=== PATIENT | female | born 1930 | race Two or more races ===

== ENCOUNTER 2019-09-11 14:00 | Outpatient (CLI) | payer MEDICARE, OTHER | END 2019-09-11 23:59 | disposition home health service (06) | LOC: WOU 14:00 | PROVIDERS: ATTEND Podiatrist Foot & Ankle Surgery | DX: E11.621 Type 2 diabetes mellitus with foot ulcer (principal); L97.522 Non-pressure chronic ulcer of other part of left foot with fat layer exposed; E11.51 Type 2 diabetes mellitus with diabetic peripheral angiopathy without gangrene; M79.675 Pain in left toe(s) | CPT/HCPCS: 82962; 87070; 87075; G0463 ==

== ENCOUNTER 2019-09-18 12:50 | Outpatient (CLI) | payer MEDICARE, OTHER | END 2019-09-18 23:59 | disposition home health service (06) | LOC: WOU 12:50 | PROVIDERS: ATTEND Podiatrist Foot & Ankle Surgery | DX: E11.621 Type 2 diabetes mellitus with foot ulcer (principal); L97.522 Non-pressure chronic ulcer of other part of left foot with fat layer exposed; E11.51 Type 2 diabetes mellitus with diabetic peripheral angiopathy without gangrene; M20.42 Other hammer toe(s) (acquired), left foot; M79.675 Pain in left toe(s) | CPT/HCPCS: G0463 ==

== ENCOUNTER 2019-09-25 12:00 | Outpatient (CLI) | payer MEDICARE, OTHER | END 2019-09-25 23:59 | disposition home health service (06) | LOC: WOU 12:00 | PROVIDERS: ATTEND Surgery Vascular Surgery | DX: E11.51 Type 2 diabetes mellitus with diabetic peripheral angiopathy without gangrene (principal); Z95.1 Presence of aortocoronary bypass graft | CPT/HCPCS: G0463 ==

== ENCOUNTER 2019-10-02 13:25 | Outpatient (CLI) | payer MEDICARE, OTHER | END 2019-10-02 23:59 | disposition home health service (06) | LOC: WOU 13:25 | PROVIDERS: ATTEND Podiatrist Foot & Ankle Surgery | DX: E11.51 Type 2 diabetes mellitus with diabetic peripheral angiopathy without gangrene (principal); B35.1 Tinea unguium; M79.675 Pain in left toe(s); M79.672 Pain in left foot; Z79.84 Long term (current) use of oral hypoglycemic drugs; Z79.01 Long term (current) use of anticoagulants | CPT/HCPCS: 11042; 11043; G0463 ==

== ENCOUNTER 2019-10-16 13:30 | Outpatient (CLI) | payer MEDICARE, OTHER | END 2019-10-16 23:59 | disposition home health service (06) | LOC: WOU 13:30 | PROVIDERS: ATTEND Podiatrist Foot & Ankle Surgery | DX: E11.621 Type 2 diabetes mellitus with foot ulcer (principal); L97.522 Non-pressure chronic ulcer of other part of left foot with fat layer exposed; E11.51 Type 2 diabetes mellitus with diabetic peripheral angiopathy without gangrene; B35.1 Tinea unguium; M79.675 Pain in left toe(s); M79.672 Pain in left foot; Z79.84 Long term (current) use of oral hypoglycemic drugs; Z79.01 Long term (current) use of anticoagulants | CPT/HCPCS: G0463 ==

== ENCOUNTER 2019-10-23 13:15 | Outpatient (CLI) | payer MEDICARE, OTHER | END 2019-10-23 23:59 | disposition home health service (06) | LOC: WOU 13:15 | PROVIDERS: ATTEND Podiatrist Foot & Ankle Surgery | DX: E11.621 Type 2 diabetes mellitus with foot ulcer (principal); L97.522 Non-pressure chronic ulcer of other part of left foot with fat layer exposed; E11.51 Type 2 diabetes mellitus with diabetic peripheral angiopathy without gangrene; Z79.84 Long term (current) use of oral hypoglycemic drugs; B35.1 Tinea unguium; M79.672 Pain in left foot; M79.675 Pain in left toe(s); Z79.01 Long term (current) use of anticoagulants | CPT/HCPCS: 11042 ==

== ENCOUNTER 2019-10-30 13:30 | Outpatient (CLI) | payer MEDICARE, OTHER | END 2019-10-30 23:59 | disposition home health service (06) | LOC: WOU 13:30 | PROVIDERS: ATTEND Podiatrist Foot & Ankle Surgery | DX: E11.621 Type 2 diabetes mellitus with foot ulcer (principal); L97.522 Non-pressure chronic ulcer of other part of left foot with fat layer exposed; E11.51 Type 2 diabetes mellitus with diabetic peripheral angiopathy without gangrene; M79.675 Pain in left toe(s); M79.672 Pain in left foot; B35.1 Tinea unguium; Z79.84 Long term (current) use of oral hypoglycemic drugs; M20.40 Other hammer toe(s) (acquired), unspecified foot; Z79.01 Long term (current) use of anticoagulants | CPT/HCPCS: 11042; 87070-TC ==

== ENCOUNTER 2019-11-04 13:45 | Inpatient (IN) | payer MEDICARE, OTHER ==
[~2019-11-04] VITALS: Ht 152.4 cm; Wt 61.2 kg
--- NOTE | 2019-11-04 14:00 | NUR ---
PT BIB FAMILY TO ER BED 11. WAS AT WOUND CENTER WHEN TOLD TO GO DIRECTLY TO ED. PT IS C/O WORSENING L FOOT PAIN AND REDNESS. NO OPEN SORE UPON INITIAL ASSESSMENT. AWAITING HUSAM GARCIA.
--- NOTE | 2019-11-04 14:23 | NUR ---
DR WATTS AT BEDSIDE FOR EVAL.
--- NOTE | 2019-11-04 14:50 | NUR ---
FIOS LINE INSTALLER AT BEDSIDE FOR BLOOD DRAW.
[2019-11-04 14:58] LABS: BASOPHILS # (AUTO) 0.1 /CMM (0.0-0.2); BASOPHILS % (AUTO) 1.1 % (0.0-2.0); EOSINOPHILS % (AUTO) 0.7 % (0.0-6.0); HEMATOCRIT 38 % (33-45); HEMOGLOBIN 12.4 g/dL (11.5-14.8); LYMPHOCYTES # (AUTO) 1.1 /CMM (0.8-4.8); LYMPHOCYTES % (AUTO) 12.3 % (20.0-44.0); MEAN CORPUSCULAR HGB CONC 32 g/dl (31.0-36.0); MEAN CORPUSCULAR VOLUME 76 fL (82-100); MONOCYTES # (AUTO) 0.5 /CMM (0.1-1.30); MONOCYTES % (AUTO) 5.3 % (2.0-12.0); NEUTROPHILS % (AUTO) 80.6 % (43.0-81.0); PLATELET COUNT (AUTO) 353 /CMM (150-450); RED BLOOD CELL COUNT(AUTO) 5.06 MIL/uL (4.0-5.2); WHITE BLOOD COUNT (AUTO) 8.7 K/uL (4.3-11.0)
[2019-11-04 15:10] LABS: CALCIUM, SERUM 9.5 mg/dL (8.5-10.1); CREATININE 0.7 mg/dL (0.6-1.3); POTASSIUM 4.4 mmol/L (3.5-5.1)
[2019-11-04] MEDS ORDERED: MECL25TA65 PO (15:23)
[2019-11-04] MEDS ORDERED: DILT60TA35 PO (15:23)
[2019-11-04] MEDS ORDERED: DIGO125T PO (15:23)
[2019-11-04] MEDS ORDERED: DABI75CA3 PO (15:23)
[2019-11-04] MEDS ORDERED: ATOR20TA PO (15:23)
[2019-11-04] MEDS ORDERED: METO25CA PO (15:23)
[2019-11-04] MEDS ORDERED: CANA100T PO (15:23)
[2019-11-04] MEDS ORDERED: LEVO25TA76 PO (15:23)
[2019-11-04] MEDS ORDERED: LINA145C PO (15:23)
[2019-11-04] MEDS ORDERED: MONT10TA22 PO (15:23)
[2019-11-04] MEDS ORDERED: METF-442 PO (15:23)
--- NOTE | 2019-11-04 16:26 | NUR ---
CALLED DPM PODIATRIC HAYLEY NAVA. LEFT MESSAGE REQUESTING CALL BACK FOR CONSULT
--- NOTE | 2019-11-04 16:30 | NUR ---
DR NAVA TALKING TO TO DR WATTS.
[2019-11-04] MEDS ORDERED: PIPERACILLIN /TAZOBACTAM 3.375 G in IV D5W 50 ML IV ONE (18:30)
--- NOTE | 2019-11-04 19:30 | NUR ---
REPORT GIVEN TO DYE TUB TENDER NURSE DESTINY FOR MAR.
--- NOTE | 2019-11-04 19:31 | NUR ---
REPORT RECEIVED FROM CHATO OLIVIER FOR MAR
--- NOTE | 2019-11-04 19:46 | NUR ---
MRI APPROVED,OUTSIDE CUTTER HAND NOTIFIED.
--- NOTE | 2019-11-04 19:48 | NUR ---
MS 208-1
--- NOTE | 2019-11-04 20:00 | NUR ---
REPORT GIVEN TO CHATO CHRISTENSEN
[2019-11-04 20:30] VITALS: BP 137/78
--- NOTE | 2019-11-04 20:30 | NUR ---
MS HOME HEALTH NURSE LICENSED PRACTICAL NOTES RECEIVED PATIENT FROM ER VIA GURNEY ACCOMPANIED BY DAUGHTER AND ER STAFF, ALERT AND ORIENTED X 3. VERBALLY RESPONSIVE [place] SPEAKING AND ABLE TO FOLLOW DIRECTIONS. BREATHING REGULAR AND UNLABORED ON ROOM AIR. RIGHT AC G20 IV LINE INTACT AND PATENT, FLUSHING WELL WITH NO BLEEDING OR S/S OF INFILTRATION NOTED. BODY ASSESSMENT DONE, SEEN WITH LEFT FOOT WOUND IN BETWEEN 4TH AND 5TH FINGER TOE. INITIAL TREATMENT PROVIDED, PHOTO TAKEN ATTACHED TO CHART. VITAL SIGNS AND BELONGINGS CHECKED BY MARYAM, TRAMAINE AND BABAR SENT HOME WITH THE DAUGHTER. RIGHT HEARING AID AND UPPER/LOWER DENTURES KEPT ON A CONTAINER ON BEDSIDE. DENIES SUICIDAL OR PAIN/DISCOMFORT AT THIS TIME. BED LOW AND LOCKED ON SEMI FOWLERS POSITION. CALL LIGHT IN REACH. WILL CONTINUE TO MONITOR.
--- NOTE | 2019-11-04 20:45 | NUR ---
MS RN NOTES PICKED-UP FOR MRI OF LEFT FOOT (VIA WHEELCHAIR)
[2019-11-04] MEDS ORDERED: ACETAMINOPHEN 325 MG TABLET PO PRN (22:00)
[2019-11-04] MEDS ORDERED: Z GUARD REMEDY 2 OZ OINT TP PRN (22:00)
[2019-11-04] MEDS ORDERED: MAGNESIUM HYDROXIDE 30 ML UDC PO PRN (22:00)
[2019-11-04] MEDS ORDERED: ONDANSETRON HCL/PF 4 MG/2 ML VIAL IVP PRN (22:00)
[2019-11-04] MEDS ORDERED: MAG HYDROX/AL HYDROX/SIMETH 30 ML UDC PO PRN (22:00)
[2019-11-04] MEDS: ZOLPIDEM TARTRATE 5 MG TABLET PO PRN (22:14)
[2019-11-04] MEDS: METOPROLOL SUCCINATE 25 MG TAB.SR.24H PO SCH (22:14)
[2019-11-04] MEDS: ATORVASTATIN 10 MG TABLET PO SCH (22:14)
[2019-11-04] MEDS ORDERED: PIPERACILLIN /TAZOBACTAM 3.375 G VIAL IV ONE (23:36)
[2019-11-04] MEDS: ZOSYN IVPB 3.375 G in IV D5W 50ml IV SCH (23:40)
[2019-11-05] MEDS ORDERED: PIPERACILLIN /TAZOBACTAM 3.375 G VIAL IV ONE (05:06)
[2019-11-05] MEDS: ZOSYN IVPB 3.375 G in IV D5W 50ml IV SCH (05:25)
[2019-11-05 06:36] LABS: BASOPHILS # (AUTO) 0.1 /CMM (0.0-0.2); BASOPHILS % (AUTO) 1.1 % (0.0-2.0); HEMATOCRIT 36 % (33-45); HEMOGLOBIN 11.5 g/dL (11.5-14.8); LYMPHOCYTES # (AUTO) 1.7 /CMM (0.8-4.8); LYMPHOCYTES % (AUTO) 22.2 % (20.0-44.0); MEAN CORPUSCULAR HGB CONC 32 g/dl (31.0-36.0); MEAN CORPUSCULAR VOLUME 75 fL (82-100); MONOCYTES # (AUTO) 0.9 /CMM (0.1-1.30); MONOCYTES % (AUTO) 11.4 % (2.0-12.0); NEUTROPHILS # (AUTO) 4.7 /CMM (1.8-8.9); NEUTROPHILS % (AUTO) 62.3 % (43.0-81.0); PLATELET COUNT (AUTO) 333 /CMM (150-450); RED BLOOD CELL COUNT(AUTO) 4.79 MIL/uL (4.0-5.2); WHITE BLOOD COUNT (AUTO) 7.5 K/uL (4.3-11.0)
[2019-11-05] MEDS: LEVOTHYROXINE SODIUM 25 MCG TABLET PO SCH (06:39)
[2019-11-05] MEDS: PANTOPRAZOLE 40 MG TABLET.DR PO SCH (06:39)
--- NOTE | 2019-11-05 06:50 | NUR ---
MS RN CLOSING NOTES PATIENT IN BED, ALERT AND ORIENTED X 3. AFEBRILE WITH NO S/S OF DISTRESS OBSERVED. RIGHT AC G20 IV LINE PATENT AND FLUSHING WELL. DENIES ANY PAIN/DISCOMFORT AT THIS TIME. BED LOW AND LOCKED ON SEMI FOWLERS POSITION. CALL LIGHT IN REACH. WILL ENDORSE TO MORNING SHIFT FOR MAR.
[2019-11-05 07:01] LABS: CALCIUM, SERUM 9.1 mg/dL (8.5-10.1); CREATININE 0.7 mg/dL (0.6-1.3); MAGNESIUM 1.6 mg/dL (1.8-2.4); PHOSPHORUS 3.2 mg/dL (2.5-4.9); POTASSIUM 3.5 mmol/L (3.5-5.1)
--- NOTE | 2019-11-05 08:00 | NUR ---
MS RN NOTES PATIENT IN BED RESTING NO SOB OR ACUTE DISTRESS NOTED. PATIENT ALERT, ORIENTED X 3. BED IN LOW LOCKED POSITION. SAFETY MEASURES IN PLACE. CALL LIGHT WITHIN REACH. WILL CONTINUE TO MONITOR.
--- NOTE | 2019-11-05 08:30 | NUR ---
WOUND CARE CONSULT: PT PRESENTS CONTINENT AND AMBULATORY WITH CANE AND ASSISTANCE. DEFER TO DPM FOR WOUND CARE TREATMENT PLAN. WILL SEE PRN.
[2019-11-05] MEDS: MONTELUKAST SODIUM (10MG) 10 MG TABLET PO SCH (09:00)
[2019-11-05] MEDS: MECLIZINE HCL 25 MG TABLET PO SCH (09:02)
[2019-11-05] MEDS: DILTIAZEM HCL 30 MG TABLET PO SCH ×2 (09:02→18:00)
[2019-11-05] MEDS: DABIGATRAN ETEXILATE MESYLATE 75 MG CAPSULE PO SCH ×2 (09:06→18:02)
[2019-11-05] MEDS ORDERED: PIPERACILLIN /TAZOBACTAM 3.375 G in IV D5W 100 ML IV SCH (10:00)
--- NOTE | 2019-11-05 12:00 | NUR ---
MS RN NOTES PATIENT WAS SEEN BY DR. SOTO CONSENT OBTAINED FOR SURGERY, DR. SOTO SPOKE TO PATIENTS DAUGHTER EDWARD, DAUGHTER ALSO AGREED FOR SURGERY. WILL CONTINUE TO MONITOR.
[2019-11-05] MEDS: MUPIROCIN OINT 2% 22 GM TUBE TP SCH ×2 (12:49→21:09)
[2019-11-05] MEDS: DIGOXIN 0.125 MG TABLET PO SCH (13:00)
[2019-11-05] MEDS: Magnesium 1GM/D5W 100ML PREMIX 100 ML IV SCH ×2 (14:37→15:49)
[2019-11-05] MEDS ORDERED: GADOTERIDOL 279.3 MG/ML VIAL IV ONE (16:51)
[2019-11-05] MEDS ORDERED: PIPERACILLIN /TAZOBACTAM 3.375 G in IV D5W 50 ML IV SCH ×3 (18:00)
--- NOTE | 2019-11-05 18:36 | NUR ---
MS RN NOTES PATIENT IN BED RESTING NO SOB OR ACUTE DISTRESS NOTED. NO ACUTE CHANGES NOTED. ALL DUE MEDICATIONS ADMINISTERED. ALL NEEDS MET. WILL ENDORSE CARE TO PM SHIFT.
--- NOTE | 2019-11-05 19:10 | NUR ---
RN OPENING NOTES Received patient asleep on bed. On RA, no SOB/respiratory distress noted at this time. Patient denies any pain at this time. Kept on bed clean, dry and comfortable. On fall and aspiration precautions. Will continue to monitor accordingly.
[2019-11-05] MEDS ORDERED: FEE PK DOSING 1 MIN EA MC ONE (19:21)
[2019-11-05 20:00] VITALS: BP 162/76
--- NOTE | 2019-11-05 20:00 | NUR ---
RN NOTES Called pharmacy for Vancomycin and Rocephin. Awaiting for medication delivery at this time.
[2019-11-05] MEDS: VANCOMYCIN 1 GM in IV D5W 250 ML IV SCH (20:57)
[2019-11-05] MEDS: HYDROCODONE/APAP 5/325MG 1 EACH TABLET PO PRN (21:05)
[2019-11-05] MEDS: ATORVASTATIN 10 MG TABLET PO SCH (21:06)
[2019-11-05] MEDS: METOPROLOL SUCCINATE 25 MG TAB.SR.24H PO SCH (21:07)
[2019-11-05] MEDS: CEFTRIAXONE 1 G in IV D5W 50 ML IV SCH (21:56)
[2019-11-05 22:00] VITALS: BP 162/76
[2019-11-05] MEDS: ZOLPIDEM TARTRATE 5 MG TABLET PO PRN (22:01)
[2019-11-06] MEDS: LEVOTHYROXINE SODIUM 25 MCG TABLET PO SCH (06:03)
[2019-11-06] MEDS: PANTOPRAZOLE 40 MG TABLET.DR PO SCH (06:46)
--- NOTE | 2019-11-06 06:53 | NUR ---
RN CLOSING NOTES Patient asleep, easily awaken. No new complaints made. All nursing needs attended. Due meds given as ordered. Kept on bed clean, dry and comfortable. On fall and aspiration precautions. Endorsed.
--- NOTE | 2019-11-06 08:00 | NUR ---
MS RN OPENING NOTES Received Patient resting in bed. A/O x 3, Senegalese speaking. VS stable with no acute distress. Breathing even and unlabored on room air with no respiratory distress. Denies pain. No signs and symptoms of pain. 20g PIV on RAC clean, intact, patent and flushing well. Safety precautions in place. Bed locked and set to lowest position with side rails x 2 up. All needs rendered at this time. Call light within reach. Will continue to monitor.
[2019-11-06 08:28] LABS: CALCIUM, SERUM 8.7 mg/dL (8.5-10.1); CARBON DIOXIDE 26 mmol/L (21-32); CHLORIDE 105 mmol/L (98-107); GLUCOSE 144 mg/dL (74-106); POTASSIUM 3.8 mmol/L (3.5-5.1); SODIUM SERUM 141 mmol/L (136-145); UREA NITROGEN, BLOOD 11 mg/dL (7-18)
[2019-11-06 08:29] LABS: CREATININE 0.7 mg/dL (0.6-1.3)
[2019-11-06] MEDS: DILTIAZEM HCL 30 MG TABLET PO SCH ×2 (08:31→16:29)
[2019-11-06] MEDS: MECLIZINE HCL 25 MG TABLET PO SCH (08:31)
[2019-11-06] MEDS: DABIGATRAN ETEXILATE MESYLATE 75 MG CAPSULE PO SCH ×2 (08:32→16:29)
[2019-11-06] MEDS: MONTELUKAST SODIUM (10MG) 10 MG TABLET PO SCH (08:32)
[2019-11-06] MEDS: MUPIROCIN OINT 2% 22 GM TUBE TP SCH ×2 (08:36→21:48)
[2019-11-06] MEDS: DIGOXIN 0.125 MG TABLET PO SCH (14:09)
[2019-11-06] MEDS: VANCOMYCIN 1 GM in IV D5W 250 ML IV SCH (19:05)
[2019-11-06] MEDS: HYDROCODONE/APAP 5/325MG 1 EACH TABLET PO PRN (19:09)
--- NOTE | 2019-11-06 19:10 | NUR ---
MS RN CLOSING NOTES Patient resting in bed. A/O x 3, [place] speaking. VS stable with no acute distress. Breathing even and unlabored on room air with no respiratory distress. Denies pain. No signs and symptoms of pain. 20g PIV on RAC clean, intact, patent and flushing well. ONE HEARING AID on RIGHT EAR in place. Safety precautions in place. Bed locked and set to lowest position with side rails x 3 up. All needs rendered at this time. Call light within reach. Will endorse plan of care to oncoming shift.
--- NOTE | 2019-11-06 19:11 | NUR ---
RN OPENING NOTES Received patient A/O x3, awake, ambulating within the room with straight cane, steady gait noted. Patient complaint of generalized pain, due meds given as ordered. On fall and aspiration precautions. Will continue to monitor accordingly.
[2019-11-06 20:00] VITALS: BP 140/77
[2019-11-06] MEDS: CEFTRIAXONE 1 G in IV D5W 50 ML IV SCH (20:28)
[2019-11-06 20:54] VITALS: BP 140/77
[2019-11-06] MEDS: ATORVASTATIN 10 MG TABLET PO SCH (21:12)
[2019-11-06] MEDS: METOPROLOL SUCCINATE 25 MG TAB.SR.24H PO SCH (21:12)
[2019-11-06] MEDS: ZOLPIDEM TARTRATE 5 MG TABLET PO PRN (22:07)
[2019-11-07 06:00] VITALS: BP 129/78
[2019-11-07] MEDS: LEVOTHYROXINE SODIUM 25 MCG TABLET PO SCH (06:20)
[2019-11-07] MEDS ORDERED: LIDOCAINE HCL/MPF 1% 30 ML VIAL IJ ONE (06:50)
[2019-11-07] MEDS ORDERED: ANESTHESIA TRAY IN PYXIS 1 EA TRAY MC ONE (06:50)
[2019-11-07] MEDS ORDERED: BUPIVACAINE MPF 0.5% W/EPI INJ 30 ML VIAL ONE (06:51)
[2019-11-07 07:04] LABS: CALCIUM, SERUM 9.1 mg/dL (8.5-10.1); CREATININE 0.6 mg/dL (0.6-1.3); POTASSIUM 3.5 mmol/L (3.5-5.1)
[2019-11-07] MEDS ORDERED: FENTANYL PF 100MCG/2ML AMPUL ONE (07:04)
[2019-11-07] MEDS ORDERED: MIDAZOLAM HCL 2 MG/2ML VIAL ONE (07:04)
[2019-11-07] MEDS ORDERED: BACITRACIN 50000 UNITS/VIAL ONE ×2 (07:09→08:08)
--- NOTE | 2019-11-07 07:11 | NUR ---
MS/RN OPENING NOTES RECEIVED REPORT FROM HOLDEN RODRIGUEZ RN. PATIENT IS OUT IN THE UNIT FOR DEBRIDEMENT.
[2019-11-07] MEDS ORDERED: BUPIVACAINE 0.5 % PF 150 MG/30 ML VIAL ONE (07:26)
[2019-11-07] MEDS: PANTOPRAZOLE 40 MG TABLET.DR PO SCH (07:30)
[2019-11-07] MEDS ORDERED: VANCOMYCIN 1 GM VIAL ONE (07:56)
[2019-11-07] MEDS ORDERED: GENTAMICIN 80 MG/2 ML VIAL ONE (08:08)
--- NOTE | 2019-11-07 09:15 | NUR ---
MS/RN NOTES PATIENT CAME BACK FROM SURGERY, RECEIVED FROM HOSSEIN RN PATIENT HAVE LEFT FOOT DEBRIDEMENT BY DR. NAVA ORDER OF FOOT ELEVATED WITH PILLOW, NO WEIGHT BEARING , RESUME MEDICATION AND DIET. VITAL SIGN TAKEN BP 132/75 PULSE 74 RR 18 SAO2 98 % TEMP 98.1. WILL CONTINUE TO MONITOR.
[2019-11-07] MEDS: DILTIAZEM HCL 30 MG TABLET PO SCH ×2 (09:19→17:42)
[2019-11-07] MEDS: MECLIZINE HCL 25 MG TABLET PO SCH (09:19)
[2019-11-07] MEDS: MONTELUKAST SODIUM (10MG) 10 MG TABLET PO SCH (09:20)
[2019-11-07] MEDS: DABIGATRAN ETEXILATE MESYLATE 75 MG CAPSULE PO SCH ×2 (09:22→17:48)
[2019-11-07] MEDS: MUPIROCIN OINT 2% 22 GM TUBE TP SCH ×2 (09:44→21:30)
[2019-11-07] MEDS ORDERED: DEXTROSE 50%-WATER 50 ML DISP.SYRIN IV PRN (11:00)
[2019-11-07] MEDS: INSULIN REGULAR, HUMAN 100 UNIT/ML 3 ML VIAL SQ PRN ×3 (12:10→21:36)
[2019-11-07] MEDS: BLOOD SUGAR DIAGNOSTIC 1 EACH STRIP IN SCH ×3 (12:12→21:35)
[2019-11-07] MEDS: DIGOXIN 0.125 MG TABLET PO SCH (12:12)
--- NOTE | 2019-11-07 12:20 | NUR ---
MS/RN NOTES CARDIZEM 30 MG PO NOT GIVEN HR 56 BPM. WILL CONTINUE TO MONITOR.
[2019-11-07 16:00] VITALS: BP 155/78
--- NOTE | 2019-11-07 19:07 | NUR ---
MS/RN CLOSING NOTES PATIENT ON BED. PATIENT IS ALERT AND ORIENTED X3. PATIENT NO S/S OF PAIN NOTED. NO RESPIRATORY DISTRESS NOTED. IV ACCESS AT RIGHT AC #20 PATENT AND INTACT. SEEN AND EXAMINED BY MD WITH ORDERS MADE AND CARRIED OUT. ALL DUE MEDICATION WAS GIVEN. PATIENT HAD A LEFT FOOT SURGERY. BED IN LOW POSITION AND LOCKED. CALL LIGHT WITHIN REACH X2. WILL ENDORSED TO DOCK GRADER FOR MAR.
--- NOTE | 2019-11-07 19:11 | NUR ---
RN NOTES: NOTIFIED LAB FOR VANCO TROUGH FOR 1899.
--- NOTE | 2019-11-07 19:15 | NUR ---
RN NOTES: PT HAS HEARING AID ON RIGHT EAR.
[2019-11-07 20:00] VITALS: BP 127/76
--- NOTE | 2019-11-07 20:02 | NUR ---
RN NOTES:PENDING VANCO TROUGH AWAITING VANCO TROUGH RESULT
--- NOTE | 2019-11-07 20:10 | NUR ---
RN NOTES: PT S/P LEFT FOOT DEBRIDEMENT DR PATEL, LEFT FOOT WOUND WITH DRESSING, C/D/I, NO ACTIVE BLEEDING NOTED, PT ABLE TO MOVE AND WIGGLE TOES, + SENSATION, LEFT LEG OFFLOADED ON PILLOWS.
[2019-11-07] MEDS: VANCOMYCIN 1 GM in IV D5W 250 ML IV SCH (20:16)
[2019-11-07 20:50] VITALS: BP 127/76
--- NOTE | 2019-11-07 21:00 | NUR ---
rn notes: unable to apply bactroban to wound/left foot wound, pt s/p let foot wound debidmeent, left foot covered with surgical dressing
[2019-11-07] MEDS: CEFTRIAXONE 1 G in IV D5W 50 ML IV SCH (21:35)
[2019-11-07] MEDS: ATORVASTATIN 10 MG TABLET PO SCH (21:35)
[2019-11-07 21:43] VITALS: BP 146/71
[2019-11-07] MEDS: METOPROLOL SUCCINATE 25 MG TAB.SR.24H PO SCH (21:44)
--- NOTE | 2019-11-08 | NUR ---
rn notes: placed on cdiff isolation, r/o jerel as pt stated she has been having diarrhea, loose stool for over a month now and has episode of 2 loose bm yesterday prior to admission. Addendum: 11/08/19 at 0544 by MARY DANGELO RN DISREGARD ABOVE DOCUMENTATION: WRONG ENTRY
[2019-11-08] MEDS: BLOOD SUGAR DIAGNOSTIC 1 EACH STRIP IN SCH ×4 (06:44→21:42)
[2019-11-08] MEDS: INSULIN REGULAR, HUMAN 100 UNIT/ML 3 ML VIAL SQ PRN ×4 (06:45→21:43)
--- NOTE | 2019-11-08 06:56 | NUR ---
end of shift report: Received report from antony bolivar at 1920 last night. pt s/p left foot wound debridement by dr valdez 11/07/2019, left foot wound dressing c/d/i, no active bleeding, left leg offloaded on pillows. a/o x3, able to make her needs known. iv access patent and flushing well, on hl. no s/s of iv infiltration noted. pt hearing aid placed on a box at bedside (pt's own container). sticker/id band attached. vs remains stable, needs attended. safety precautions for fall remains engaged, call light in reach, will endorse to day rn for continuity of care.
[2019-11-08] MEDS: LEVOTHYROXINE SODIUM 25 MCG TABLET PO SCH (07:31)
[2019-11-08] MEDS: PANTOPRAZOLE 40 MG TABLET.DR PO SCH (07:31)
--- NOTE | 2019-11-08 07:41 | NUR ---
RN NOTES Received Patient in bed resting comfortably in moderate high back rest. A/O x3. No signs of distress noted at this time. Noted with left foot wound dressing c/d/i, no active bleeding, left leg offloaded on pillows. IV access patent and flushing well, on hl. no s/s of iv infiltration noted. Safety measures in place, bed in lowest locked position with side rails up x2. call light placed within easy reach. Will continue to monitor.
[2019-11-08 07:48] LABS: CALCIUM, SERUM 8.9 mg/dL (8.5-10.1); CREATININE 0.6 mg/dL (0.6-1.3); POTASSIUM 3.6 mmol/L (3.5-5.1)
[2019-11-08 08:00] VITALS: BP 137/71
[2019-11-08] MEDS: DILTIAZEM HCL 30 MG TABLET PO SCH ×2 (08:19→16:15)
[2019-11-08] MEDS: MECLIZINE HCL 25 MG TABLET PO SCH (08:19)
[2019-11-08] MEDS: MONTELUKAST SODIUM (10MG) 10 MG TABLET PO SCH (08:19)
[2019-11-08] MEDS: DABIGATRAN ETEXILATE MESYLATE 75 MG CAPSULE PO SCH ×2 (08:20→16:15)
[2019-11-08] MEDS: MUPIROCIN OINT 2% 22 GM TUBE TP SCH ×2 (09:01→21:30)
[2019-11-08] MEDS: DIGOXIN 0.125 MG TABLET PO SCH (12:29)
[2019-11-08] MEDS: VANCOMYCIN 1 GM in IV D5W 250 ML IV SCH (13:50)
[2019-11-08 16:00] VITALS: BP 149/73
--- NOTE | 2019-11-08 18:35 | NUR ---
RN NOTES Patient in bed resting comfortably in moderate high back rest. A/O x3. No signs of distress noted throughout the shift. Wound care on left foot done by MD. IV access patent and flushing well, on hl. no s/s of iv infiltration noted. Safety measures in place, bed in lowest locked position with side rails up x2. call light placed within easy reach. Will Endorse to night shift manager nurse for rebeka.
[2019-11-08 20:00] VITALS: BP 114/68
--- NOTE | 2019-11-08 20:00 | NUR ---
RN NOTES: POSTED PRECAUTIONS FOR LEFT ARM P[T HAS LEFT MASTECTOMY: NO BP /IV/BLOOD DRAW ON LEFT ARM.
--- NOTE | 2019-11-08 20:30 | NUR ---
rn notes: sit outside pt's room, as pt kept trying to get out of bed, wants to go home. no siytter available, senior auditor still making rounds doing vs. safety precautions for fall engaged/. pt risk for fall
--- NOTE | 2019-11-08 20:42 | NUR ---
RN NOTES: CONTACTED PT'S DAUGHTER HILARIA, PT KEPT TRYING TO GET OUT OF BED, PT'S DIAPER WAS THEN CHANGED, AND NEW P[ADS APPLIED, BUT PT STILL WANTING TO GET UP AND LEAVE, SITTING SHE WILL GO HOME, PT SPEAKS LITTLE CENTRAL AFRICAN, [place], SPOKED WITH HILARIA, SHE THEN SPEAK WITH HER MOTHER AND EXPLAIN SHE WILL BE GOING BACK HOME TOMORROW AFTERNOON. PER HILARIA TO GIVE HER MOTHER TYLENOL FOR LEFT FOOT PAIN, NO NORCO, AND TO GIVE SLEEPING PILL.
[2019-11-08] MEDS: CEFTRIAXONE 1 G in IV D5W 50 ML IV SCH (20:46)
--- NOTE | 2019-11-08 20:46 | NUR ---
PRN TYLENOL: PT C/O LEFT FOOT PAIN, PER DAUGHTER ONLY GIVE TYLENOL, NO NORCO, PRN TYLENOL 650 MG TAB PO ADMINISTERED TO PT AT THIS TIME.
[2019-11-08 21:36] VITALS: BP 109/62
[2019-11-08] MEDS: ATORVASTATIN 10 MG TABLET PO SCH (21:42)
[2019-11-08] MEDS: METOPROLOL SUCCINATE 25 MG TAB.SR.24H PO SCH (21:42)
--- NOTE | 2019-11-08 21:46 | NUR ---
rn notes: unable to apply bactroban on left foot/toe area , new dressing change provided by , s/p left foot debridement.
--- NOTE | 2019-11-08 22:00 | NUR ---
RN NOTES: ASSISTED ARMED CUSTOM PROTECTION OFFICER IN CHANGING PT'S PADS SHE VOIDED. ZGUARD AND MEPILEX APPLIED FOR PREVENTION OF PRESSURE INJURIES ON SACRAL AREA.
--- NOTE | 2019-11-08 22:30 | NUR ---
rn notes: screen printing loader unloader and assigned rn alternating to watch the pt, even though pt was able to speak with her daughter vinay, pt still consistently getting out of bed, putting pressure on her left foot, which is not appropriate due to recent debridement on left foot area. unsteady gait noted.
--- NOTE | 2019-11-08 23:44 | NUR ---
rn notes: pt consistently getting out of bed, and trying to pull out iv access. pt saying she would like to go home, pt for dc home timmy at 1330. pt high fall risk, s/p left foot wound debridement yesterday, unstable gait, spoked with daughter and stated her mother has episode of owning. kept pt on fall precautions, bed alarm secured. tried wale for safety but pt difficult to manage behavior. hospitalist epic notified of the situation with orders for sitter. notified osmel garcia for order for sitter, per osmel iverson unfortunately due to staffing constraints, unable to provide for sitter tonight, but will try to provide one for day shift. made aware, telephone order received for bilateral soft wrist restraint. all orders read back and carried out out.
--- NOTE | 2019-11-09 00:25 | NUR ---
RN NOTES: ASSISTED HAND WELT BUTTER IN CHANGING PT'S PAD SHE VOIDED FREELY, APPLIED NEW PADS, KEPT PT COMFORTABLE
[2019-11-09 00:44] VITALS: BP 154/79
--- NOTE | 2019-11-09 02:00 | NUR ---
rn notes: seen pt asleep, calm and snoring, release of restraint provided, taina an sitting by the door of pt' room watching the pt while restraint is release.
--- NOTE | 2019-11-09 05:02 | NUR ---
rn notes: assisted speech/language therapist in providing bed bath and complete linen change to pt.
[2019-11-09] MEDS: PANTOPRAZOLE 40 MG TABLET.DR PO SCH (06:25)
[2019-11-09] MEDS: LEVOTHYROXINE SODIUM 25 MCG TABLET PO SCH (06:25)
[2019-11-09] MEDS: BLOOD SUGAR DIAGNOSTIC 1 EACH STRIP IN SCH ×2 (06:25→12:13)
[2019-11-09] MEDS: INSULIN REGULAR, HUMAN 100 UNIT/ML 3 ML VIAL SQ PRN ×2 (06:28→12:13)
--- NOTE | 2019-11-09 06:54 | NUR ---
END OF SHIFT REPORT: PT REMAINS A/O X2-3, UNCOOPERATIVE AT TIMES, STILL TRYING TO GET OUT BED BY LIFTING HER LEGS OUT OF BED ON RIGHT SIDE, YELLING. TRIED RELEASING RESTRAINT HOWEVER UNSUCCESSFUL, PT DECIDED TO GET UP AGAIN, UNSTEADY GAIT DUE TO POST SURGICAL LEFT FOOT. DRESSING DOMENIC LEFT FOOT REMAINS C/D/I, NO ACTIVE BLEEDING NOTED. KEPT OFFLOADED ON PILLOWS. PT REMAINS WITH BILATERAL SOFT WRIST RESTRAINT, RADIAL PULSES PALPABLE AND INTACT, PT ABLE TO MOVE AND WIGGLE ARMS AND HANDS, WITH GOOD CAPILLARY REFILL NOTED, NO S/S OF IMPEDIMENT IN CIRCULATION NOTED. hearing available at bedside placed in a container with pt's name/id band attached. PT FOR DC AT 1330, EXIT CARE PREPARED. VS REMAINS STABLE, NEEDS ATTENDED. SAFETY PRECAUTIONS FOR FALL REMAINS ENGAGED, CALL LIGHT IN REACH, WILL ENDORSE TO DAY RN FOR CONTINUITY OF CARE.
--- NOTE | 2019-11-09 07:30 | NUR ---
PT RECEIVED RESTING COMFORTABLY IN BED WITH EYES CLOSED. NO S/S OR C/O PAIN OR DISTRESS NOTED. SIDE RAILS UP X2, CALL LIGHT LEFT WITHIN REACH. WILL CONTINUE PLAN OF CARE.
--- NOTE | 2019-11-09 08:00 | NUR ---
RESTRAINTS REMOVED UPON NURSING ASSESSMENT, RESTRAINTS UNNECESSARY AT THIS TIME. WILL CONTINUE TO MONITOR.
[2019-11-09 08:51] VITALS: BP 134/94
[2019-11-09] MEDS: MECLIZINE HCL 25 MG TABLET PO SCH (08:51)
[2019-11-09] MEDS: DILTIAZEM HCL 30 MG TABLET PO SCH (08:51)
[2019-11-09] MEDS: MONTELUKAST SODIUM (10MG) 10 MG TABLET PO SCH (08:51)
[2019-11-09] MEDS: DABIGATRAN ETEXILATE MESYLATE 75 MG CAPSULE PO SCH (08:51)
[2019-11-09] MEDS: VANCOMYCIN 1 GM in IV D5W 250 ML IV SCH (08:53)
[2019-11-09] MEDS: MUPIROCIN OINT 2% 22 GM TUBE TP SCH (08:58)
--- NOTE | 2019-11-09 13:47 | NUR ---
DISCHARGE INSTRUCTIONS GIVEN ORDERED. ENCOURAGED TO FOLLOW UP WITH PMD AND DR ARORA INSTRUCTED. ALL QUESTIONS AND CONCERNS ADDRESSED. PATIENT VERBALIZED UNDERSTANDING. MEDICATION RECONCILIATION FORM COMPLETED AND COPY GIVEN TO PATIENT. IV REMOVED WITH CATHETER INTACT, PRESSURE DRESSING APPLIED. PATIENT TAKEN VIA GURNEY TO MEDICAL TRANSPORT WITH ALL PERSONAL BELONGINGS, NO DISTRESS NOTED AT TIME OF DEPARTURE. Addendum: 11/09/19 at 1349 by ALYSA CUNNINGHAM RN DISCHARGE INSTRUCTIONS GIVEN ORDERED. ENCOURAGED TO FOLLOW UP WITH PMD INSTRUCTED. MEDICATION RECONCILIATION FORM COMPLETED AND COPY GIVEN TO PATIENT. IV REMOVED WITH CATHETER INTACT, PRESSURE DRESSING APPLIED. PATIENT TAKEN VIA GURNEY TO MEDICAL TRANSPORT WITH ALL PERSONAL BELONGINGS, NO DISTRESS NOTED AT TIME OF DEPARTURE.
[2019-11-09 13:49] LABS: CALCIUM, SERUM 9.5 mg/dL (8.5-10.1); CREATININE 0.6 mg/dL (0.6-1.3); POTASSIUM 3.5 mmol/L (3.5-5.1)
== END 2019-11-09 13:45 | disposition home health service (06) | DRG 623 ==
LOC: ER 13:51 → MEDSG2 19:53
PROVIDERS: ADMIT Nurse Practitioner Acute Care; ATTEND Nurse Practitioner Acute Care
PROC: 0HXNXZZ Transfer Left Foot Skin, External Approach (ICD-10-PCS; principal; 2019-11-07)
PROC: 0JBR0ZZ Excision of Left Foot Subcutaneous Tissue and Fascia, Open Approach (ICD-10-PCS; 2019-11-07)
DX: E11.621 Type 2 diabetes mellitus with foot ulcer (principal); L03.116 Cellulitis of left lower limb; Z90.49 Acquired absence of other specified parts of digestive tract; I10 Essential (primary) hypertension; E78.5 Hyperlipidemia, unspecified; Z85.3 Personal history of malignant neoplasm of breast; M19.90 Unspecified osteoarthritis, unspecified site; L97.521 Non-pressure chronic ulcer of other part of left foot limited to breakdown of skin; Z90.12 Acquired absence of left breast and nipple; Z95.1 Presence of aortocoronary bypass graft; I25.10 Atherosclerotic heart disease of native coronary artery without angina pectoris; Z79.84 Long term (current) use of oral hypoglycemic drugs; Z79.899 Other long term (current) drug therapy; E83.42 Hypomagnesemia; Z98.890 Other specified postprocedural states
CPT/HCPCS: 36415; 73630-TC; 73720-TC; 80048-TC; 80061-TC; 80162-TC; 80202-TC; 82040-TC; 82962-TC; 83735-TC; 84100-TC; 85025-TC; 85652-TC; 86850-TC; 87070-TC; 87081-TC; 87186-TC; 97116-TC; 97530-TC; A6209; A6403; A9579; G0378; J0690; J0696; J1580; J1815; J2250; J2405; J2543; J2704; J2765; J3010; J3370; J3475; J3490; J7050; J7060; J8597

== ENCOUNTER 2019-11-15 08:40 | Outpatient (CLI) | payer MEDICARE, OTHER ==
[~2019-11-15 08:40] MED LIST: ATOR20TA PO; CANA100T PO; DABI75CA3 PO; DIGO125T PO; DILT60TA35 PO; LEVO25TA76 PO; LINA145C PO; MECL25TA65 PO; METF-442 PO; METO25CA PO; MONT10TA22 PO
== END 2019-11-15 23:59 | disposition home health service (06) ==
LOC: WOU 08:40
PROVIDERS: ATTEND Podiatrist Foot & Ankle Surgery
DX: Z48.817 Encounter for surgical aftercare following surgery on the skin and subcutaneous tissue (principal); E11.51 Type 2 diabetes mellitus with diabetic peripheral angiopathy without gangrene; Z79.84 Long term (current) use of oral hypoglycemic drugs; B35.1 Tinea unguium; M79.675 Pain in left toe(s); M79.672 Pain in left foot
CPT/HCPCS: G0463

== ENCOUNTER 2019-11-20 13:48 | Outpatient (CLI) | payer MEDICARE, OTHER | END 2019-11-20 23:59 | disposition home health service (06) | LOC: WOU 13:48 | PROVIDERS: ATTEND Podiatrist Foot & Ankle Surgery | DX: T81.31XA Disruption of external operation (surgical) wound, not elsewhere classified, initial encounter (principal); E11.51 Type 2 diabetes mellitus with diabetic peripheral angiopathy without gangrene; B35.1 Tinea unguium; M79.672 Pain in left foot; Z79.84 Long term (current) use of oral hypoglycemic drugs; Z79.01 Long term (current) use of anticoagulants ==

== ENCOUNTER 2019-11-22 08:35 | Outpatient (CLI) | payer MEDICARE, OTHER | END 2019-11-22 23:59 | disposition home health service (06) | LOC: WOU 08:35 | PROVIDERS: ATTEND Podiatrist Foot & Ankle Surgery | DX: T81.31XD Disruption of external operation (surgical) wound, not elsewhere classified, subsequent encounter (principal); E11.51 Type 2 diabetes mellitus with diabetic peripheral angiopathy without gangrene; Z79.84 Long term (current) use of oral hypoglycemic drugs; B35.1 Tinea unguium; M79.675 Pain in left toe(s); M79.672 Pain in left foot; R53.1 Weakness; Z74.09 Other reduced mobility | CPT/HCPCS: G0463 ==

== ENCOUNTER 2019-11-26 09:00 | Outpatient (CLI) | payer MEDICARE, OTHER | END 2019-11-26 23:59 | disposition home health service (06) | LOC: WOU 09:00 | PROVIDERS: ATTEND Podiatrist Foot & Ankle Surgery | DX: T81.31XD Disruption of external operation (surgical) wound, not elsewhere classified, subsequent encounter (principal); E11.51 Type 2 diabetes mellitus with diabetic peripheral angiopathy without gangrene; B35.1 Tinea unguium; M79.675 Pain in left toe(s); M79.672 Pain in left foot; Z79.84 Long term (current) use of oral hypoglycemic drugs; Z79.01 Long term (current) use of anticoagulants | CPT/HCPCS: A6197; G0463 ==

== ENCOUNTER 2019-12-03 08:45 | Outpatient (CLI) | payer MEDICARE, OTHER | END 2019-12-03 23:59 | disposition home health service (06) | LOC: WOU 08:45 | PROVIDERS: ATTEND Podiatrist Foot & Ankle Surgery | DX: T81.31XA Disruption of external operation (surgical) wound, not elsewhere classified, initial encounter (principal); E11.51 Type 2 diabetes mellitus with diabetic peripheral angiopathy without gangrene; B35.1 Tinea unguium; M79.675 Pain in left toe(s); M79.672 Pain in left foot; Z79.84 Long term (current) use of oral hypoglycemic drugs; Z79.01 Long term (current) use of anticoagulants | CPT/HCPCS: 15275; Q4186 ×2 ==

== ENCOUNTER 2019-12-10 08:45 | Outpatient (CLI) | payer MEDICARE, OTHER | END 2019-12-10 23:59 | disposition home health service (06) | LOC: WOU 08:45 | PROVIDERS: ATTEND Podiatrist Foot & Ankle Surgery | DX: T81.31XA Disruption of external operation (surgical) wound, not elsewhere classified, initial encounter (principal); E11.51 Type 2 diabetes mellitus with diabetic peripheral angiopathy without gangrene; B35.1 Tinea unguium; M79.675 Pain in left toe(s); M79.672 Pain in left foot; Z79.84 Long term (current) use of oral hypoglycemic drugs | CPT/HCPCS: 15275; Q4186 ×2 ==

== ENCOUNTER 2019-12-17 08:45 | Outpatient (CLI) | payer MEDICARE, OTHER | END 2019-12-17 23:59 | disposition home health service (06) | LOC: WOU 08:45 | PROVIDERS: ATTEND Podiatrist Foot & Ankle Surgery | DX: T81.31XA Disruption of external operation (surgical) wound, not elsewhere classified, initial encounter (principal); E11.51 Type 2 diabetes mellitus with diabetic peripheral angiopathy without gangrene; B35.1 Tinea unguium; M79.672 Pain in left foot; M79.675 Pain in left toe(s); Z79.84 Long term (current) use of oral hypoglycemic drugs | CPT/HCPCS: 15275; Q4133 ==

== ENCOUNTER 2019-12-24 08:40 | Outpatient (CLI) | payer MEDICARE, OTHER | END 2019-12-24 23:59 | disposition home health service (06) | LOC: WOU 08:40 | PROVIDERS: ATTEND Podiatrist Foot & Ankle Surgery | DX: T81.31XA Disruption of external operation (surgical) wound, not elsewhere classified, initial encounter (principal); E11.51 Type 2 diabetes mellitus with diabetic peripheral angiopathy without gangrene; Z79.84 Long term (current) use of oral hypoglycemic drugs; B35.1 Tinea unguium; M79.672 Pain in left foot; Z79.01 Long term (current) use of anticoagulants; I25.10 Atherosclerotic heart disease of native coronary artery without angina pectoris; Z95.1 Presence of aortocoronary bypass graft | CPT/HCPCS: 11043 ==

== ENCOUNTER 2019-12-31 08:30 | Outpatient (CLI) | payer MEDICARE, OTHER | END 2019-12-31 23:59 | disposition home health service (06) | LOC: WOU 08:30 | PROVIDERS: ATTEND Podiatrist Foot & Ankle Surgery | DX: T81.31XA Disruption of external operation (surgical) wound, not elsewhere classified, initial encounter (principal); E11.51 Type 2 diabetes mellitus with diabetic peripheral angiopathy without gangrene; M79.675 Pain in left toe(s); M79.672 Pain in left foot; B35.1 Tinea unguium; Z79.84 Long term (current) use of oral hypoglycemic drugs | CPT/HCPCS: 11044 ==

== ENCOUNTER 2020-01-07 08:25 | Outpatient (CLI) | payer MEDICARE, OTHER | END 2020-01-07 23:59 | disposition home health service (06) | LOC: WOU 08:25 | PROVIDERS: ATTEND Podiatrist Foot & Ankle Surgery | DX: T81.31XA Disruption of external operation (surgical) wound, not elsewhere classified, initial encounter (principal); E11.51 Type 2 diabetes mellitus with diabetic peripheral angiopathy without gangrene; B35.1 Tinea unguium; M79.672 Pain in left foot; M79.675 Pain in left toe(s); Z79.84 Long term (current) use of oral hypoglycemic drugs; Z79.01 Long term (current) use of anticoagulants | CPT/HCPCS: 11043 ==

== ENCOUNTER 2020-01-14 08:35 | Outpatient (CLI) | payer MEDICARE, OTHER ==
[2020-01-14] MEDS ORDERED: CADEXOMER IODINE UD 5 GM TUBE ONE (09:07)
== END 2020-01-14 23:59 | disposition home health service (06) ==
LOC: WOU 08:35
PROVIDERS: ATTEND Podiatrist Foot & Ankle Surgery
DX: T81.31XA Disruption of external operation (surgical) wound, not elsewhere classified, initial encounter (principal); E11.51 Type 2 diabetes mellitus with diabetic peripheral angiopathy without gangrene; M79.672 Pain in left foot; M79.675 Pain in left toe(s); Z79.84 Long term (current) use of oral hypoglycemic drugs; Z79.01 Long term (current) use of anticoagulants
CPT/HCPCS: 11044

== ENCOUNTER 2020-01-21 08:25 | Outpatient (CLI) | payer MEDICARE, OTHER ==
[2020-01-21] MEDS ORDERED: LIDOCAINE SOLN 4% 50 ML BOTTLE ONE (08:29)
[2020-01-21] MEDS ORDERED: CADEXOMER IODINE UD 5 GM TUBE ONE (08:48)
== END 2020-01-21 23:59 | disposition home health service (06) ==
LOC: WOU 08:25
PROVIDERS: ATTEND Podiatrist Foot & Ankle Surgery
DX: E11.621 Type 2 diabetes mellitus with foot ulcer (principal); L97.526 Non-pressure chronic ulcer of other part of left foot with bone involvement without evidence of necrosis; E11.51 Type 2 diabetes mellitus with diabetic peripheral angiopathy without gangrene; Z79.84 Long term (current) use of oral hypoglycemic drugs; M79.672 Pain in left foot; M79.675 Pain in left toe(s); B35.1 Tinea unguium; Z79.01 Long term (current) use of anticoagulants
CPT/HCPCS: 11044

== ENCOUNTER 2020-01-31 14:30 | Outpatient (CLI) | payer MEDICARE, OTHER ==
[2020-01-31] MEDS ORDERED: LIDOCAINE HCL/MPF 1% 30 ML VIAL IJ ONE (15:26)
== END 2020-01-31 23:59 | disposition home health service (06) ==
LOC: WOU 14:30
PROVIDERS: ATTEND Podiatrist Foot & Ankle Surgery
DX: T81.31XA Disruption of external operation (surgical) wound, not elsewhere classified, initial encounter (principal); E11.51 Type 2 diabetes mellitus with diabetic peripheral angiopathy without gangrene; B35.1 Tinea unguium; M79.672 Pain in left foot; M79.675 Pain in left toe(s); Z79.02 Long term (current) use of antithrombotics/antiplatelets; Z79.84 Long term (current) use of oral hypoglycemic drugs
CPT/HCPCS: 11044; 87070; 87075; J3490; 88305-TC; 88311-TC

== ENCOUNTER 2020-02-12 14:00 | Outpatient (CLI) | payer MEDICARE, OTHER | END 2020-02-12 23:59 | disposition home health service (06) | LOC: WOU 14:00 | PROVIDERS: ATTEND Podiatrist Foot & Ankle Surgery | DX: T81.31XA Disruption of external operation (surgical) wound, not elsewhere classified, initial encounter (principal); E11.51 Type 2 diabetes mellitus with diabetic peripheral angiopathy without gangrene; Z79.84 Long term (current) use of oral hypoglycemic drugs; B35.1 Tinea unguium; Z79.01 Long term (current) use of anticoagulants; M79.672 Pain in left foot; M79.675 Pain in left toe(s) | CPT/HCPCS: 11044 ==

== ENCOUNTER 2020-03-04 14:00 | Outpatient (CLI) | payer MEDICARE, OTHER ==
[2020-03-04] MEDS ORDERED: LIDOCAINE 2% 20 ML MDV ONE (14:33)
== END 2020-03-04 23:59 | disposition home health service (06) ==
LOC: WOU 14:00
PROVIDERS: ATTEND Podiatrist Foot & Ankle Surgery
DX: E11.621 Type 2 diabetes mellitus with foot ulcer (principal); L97.526 Non-pressure chronic ulcer of other part of left foot with bone involvement without evidence of necrosis; E11.51 Type 2 diabetes mellitus with diabetic peripheral angiopathy without gangrene; Z79.84 Long term (current) use of oral hypoglycemic drugs; B35.1 Tinea unguium; M79.675 Pain in left toe(s)
CPT/HCPCS: 11044; 87070; 87075; J3490

== ENCOUNTER 2020-03-11 14:00 | Outpatient (CLI) | payer MEDICARE, OTHER | END 2020-03-11 23:59 | disposition home health service (06) | LOC: WOU 14:00 | PROVIDERS: ATTEND Podiatrist Foot & Ankle Surgery | DX: E11.621 Type 2 diabetes mellitus with foot ulcer (principal); L97.528 Non-pressure chronic ulcer of other part of left foot with other specified severity; E11.51 Type 2 diabetes mellitus with diabetic peripheral angiopathy without gangrene; Z79.84 Long term (current) use of oral hypoglycemic drugs; B35.1 Tinea unguium; M79.672 Pain in left foot; M79.675 Pain in left toe(s); Z79.01 Long term (current) use of anticoagulants | CPT/HCPCS: G0463 ==

== ENCOUNTER 2020-03-18 14:00 | Outpatient (CLI) | payer MEDICARE, OTHER | END 2020-03-18 23:59 | disposition home health service (06) | LOC: WOU 14:00 | PROVIDERS: ATTEND Podiatrist Foot & Ankle Surgery | DX: E11.621 Type 2 diabetes mellitus with foot ulcer (principal); L97.528 Non-pressure chronic ulcer of other part of left foot with other specified severity; E11.51 Type 2 diabetes mellitus with diabetic peripheral angiopathy without gangrene; E11.69 Type 2 diabetes mellitus with other specified complication; M86.172 Other acute osteomyelitis, left ankle and foot; Z79.84 Long term (current) use of oral hypoglycemic drugs; M79.672 Pain in left foot; M79.675 Pain in left toe(s); Z79.01 Long term (current) use of anticoagulants | CPT/HCPCS: G0463 ==

== ENCOUNTER 2020-03-25 12:50 | Outpatient (CLI) | payer MEDICARE, OTHER ==
[2020-03-25] MEDS ORDERED: HYDROCORTISONE 1% CREAM 28.35 GM TUBE TP ONE (14:37)
== END 2020-03-25 23:59 | disposition home health service (06) ==
LOC: WOU 12:50
PROVIDERS: ATTEND Podiatrist Foot & Ankle Surgery
DX: E11.621 Type 2 diabetes mellitus with foot ulcer (principal); L97.529 Non-pressure chronic ulcer of other part of left foot with unspecified severity; Z79.84 Long term (current) use of oral hypoglycemic drugs; E11.51 Type 2 diabetes mellitus with diabetic peripheral angiopathy without gangrene; E11.69 Type 2 diabetes mellitus with other specified complication; M86.172 Other acute osteomyelitis, left ankle and foot; L03.116 Cellulitis of left lower limb; B35.1 Tinea unguium; L21.8 Other seborrheic dermatitis; M79.672 Pain in left foot; R60.0 Localized edema; Z79.01 Long term (current) use of anticoagulants
CPT/HCPCS: G0463

== ENCOUNTER 2020-04-01 13:45 | Outpatient (CLI) | payer MEDICARE, OTHER | END 2020-04-01 23:59 | disposition home health service (06) | LOC: WOU 13:45 | PROVIDERS: ATTEND Podiatrist Foot & Ankle Surgery | DX: E11.621 Type 2 diabetes mellitus with foot ulcer (principal); L97.525 Non-pressure chronic ulcer of other part of left foot with muscle involvement without evidence of necrosis; E11.51 Type 2 diabetes mellitus with diabetic peripheral angiopathy without gangrene; M79.675 Pain in left toe(s); E11.69 Type 2 diabetes mellitus with other specified complication; M86.172 Other acute osteomyelitis, left ankle and foot; Z79.84 Long term (current) use of oral hypoglycemic drugs; L03.116 Cellulitis of left lower limb; R60.0 Localized edema; Z79.01 Long term (current) use of anticoagulants | CPT/HCPCS: 11043 ==